=== PATIENT | male | born 1945 | race Caucasian/White ===

== ENCOUNTER 2017-12-06 19:40 | Emergency (ER) | payer OTHER ==
[2017-12-06 21:53] LABS: ADD MAN DIFF? NO
[2017-12-06 21:59] LABS: BASOPHIL # 0.1 10^3/ul (0.0-0.1); BASOPHILS % 0.8 % (0.0-2.0); EOSINOPHILS # 0.4 10^3/ul (0.0-0.5); EOSINOPHILS % 4.7 % (0.0-7.0); HEMATOCRIT 45.7 % (42.0-52.0); HEMOGLOBIN 15.4 g/dl (14.0-18.0); LYMPHOCYTES # 3.2 10^3/ul (0.8-2.9); LYMPHOCYTES % 39.1 % (15.0-51.0); MEAN CORPUSCULAR HEMOGLOBIN 30.6 pg (29.0-33.0); MEAN CORPUSCULAR HGB CONC 33.7 g/dl (32.0-37.0); MEAN CORPUSCULAR VOLUME 90.7 fl (82.0-101.0); MEAN PLATELET VOLUME 9.3 fl (7.4-10.4); MONOCYTE # 0.9 10^3/ul (0.3-0.9); MONOCYTES % 11.4 % (0.0-11.0); NEUTROPHIL # 3.6 10^3/ul (1.6-7.5); NEUTROPHILS % 43.8 % (39.0-77.0); PLATELET COUNT 422 10^3/UL (140-415); RED BLOOD COUNT 5.04 10^6/ul (4.70-6.10); RED CELL DISTRIBUTION WIDTH 12.8 % (11.5-14.5)
[2017-12-06 21:59] LABS: WHITE BLOOD COUNT 8.3 10^3/ul (4.8-10.8)
[2017-12-06] MEDS: ASPIRIN 325 MG TAB PO (22:11)
[2017-12-06 22:25] LABS: ANION GAP 12 (8-16); BLOOD UREA NITROGEN 22 mg/dl (7-20); CALCIUM 9.1 mg/dl (8.4-10.2); CARBON DIOXIDE 25 mmol/L (21-31); CHLORIDE 108 mmol/L (97-110); CREATININE 1.19 mg/dl (0.61-1.24); GLUCOSE 98 mg/dl (70-220); POTASSIUM 3.8 mmol/L (3.5-5.1); SODIUM 141 mmol/L (135-144)
[2017-12-06 22:37] LABS: B-TYPE NATRIURETIC PEPTIDE 87 PG/ML (0-125)
[2017-12-06 22:41] LABS: TROPONIN-I < 0.012 ng/ml (0.00-0.12)
[2017-12-06] MEDS: IPRATROPIUM (NEB) 0.5 MG/2.5 ML AMP HHN (22:49)
[2017-12-06] MEDS: LEVALBUTEROL (NEB) 1.25 MG/0.5 ML AMP HHN (22:49)
[2017-12-06] MEDS ORDERED: predniSONE 20 MG TAB PO (23:00)
[2017-12-06] MEDS: METHYLPREDNISOLONE 125 MG INJ IV (23:43)
[2017-12-07] MEDS: IPRATROPIUM (NEB) 0.5 MG/2.5 ML AMP HHN (00:25)
[2017-12-07] MEDS: LEVALBUTEROL (NEB) 1.25 MG/0.5 ML AMP HHN (00:25)
== END 2017-12-07 01:20 | disposition home or self-care (01) ==
LOC: E/R 12-07 01:20
DX: J20.9 Acute bronchitis, unspecified (principal); I10 Essential (primary) hypertension
CPT/HCPCS: 36415; 71045; 80048; 83880; 84484; 85025; 93005; 94640; 94664; 96374; 99285-25

== ENCOUNTER 2018-03-18 13:55 | Emergency (ER) | payer SELFPAY, OTHER | END 2018-03-18 15:10 | disposition left against medical advice (07) | LOC: FTE 13:55 | DX: Z53.21 Procedure and treatment not carried out due to patient leaving prior to being seen by health care provider (principal) ==

== ENCOUNTER 2018-03-21 23:09 | Emergency (ER) | payer OTHER ==
[2018-03-22] MEDS: SOD CHLORIDE 0.9% 1,000 ML IV (00:38)
[2018-03-22] MEDS: ACETAMINOPHEN 325 MG TAB PO (00:38)
[2018-03-22] MEDS: ONDANSETRON 4 MG INJ IV (00:38)
[2018-03-22 00:54] LABS: ADD MAN DIFF? NO
[2018-03-22 00:59] LABS: BASOPHIL # 0.1 10^3/ul (0.0-0.1); BASOPHILS % 0.8 % (0.0-2.0); EOSINOPHILS # 0.3 10^3/ul (0.0-0.5); EOSINOPHILS % 3.4 % (0.0-7.0); HEMATOCRIT 44.8 % (42.0-52.0); HEMOGLOBIN 15.2 g/dl (14.0-18.0); LYMPHOCYTES # 3.5 10^3/ul (0.8-2.9); LYMPHOCYTES % 34.7 % (15.0-51.0); MEAN CORPUSCULAR HEMOGLOBIN 31.1 pg (29.0-33.0); MEAN CORPUSCULAR HGB CONC 33.9 g/dl (32.0-37.0); MEAN CORPUSCULAR VOLUME 91.8 fl (82.0-101.0); MEAN PLATELET VOLUME 8.7 fl (7.4-10.4); MONOCYTE # 1.1 10^3/ul (0.3-0.9); MONOCYTES % 11.3 % (0.0-11.0); NEUTROPHILS % 49.5 % (39.0-77.0); PLATELET COUNT 369 10^3/UL (140-415); RED BLOOD COUNT 4.88 10^6/ul (4.70-6.10); RED CELL DISTRIBUTION WIDTH 12.6 % (11.5-14.5)
[2018-03-22 01:11] LABS: INR 0.91; PROTIME 12.3 Sec (11.9-14.9)
[2018-03-22 01:12] LABS: PARTIAL THROMBOPLASTIN TIME 28.1 Sec (25.0-35.0)
[2018-03-22 01:17] LABS: ALANINE AMINOTRANSFERASE 22 IU/L (13-69); ALBUMIN 3.9 g/dl (3.3-4.9); ALBUMIN/GLOBULIN RATIO 1.39; ALKALINE PHOSPHATASE 78 IU/L (42-121); ANION GAP 14 (8-16); ASPARTATE AMINO TRANSFERASE 22 IU/L (15-46); BILIRUBIN,INDIRECT 0.4 mg/dl (0-1.1); BILIRUBIN,TOTAL 0.4 mg/dl (0.2-1.3); BLOOD UREA NITROGEN 16 mg/dl (7-20); CALCIUM 9.7 mg/dl (8.4-10.2); CARBON DIOXIDE 23 mmol/L (21-31); CHLORIDE 106 mmol/L (97-110); GLUCOSE 96 mg/dl (70-220); LIPASE 144 U/L (23-300); POTASSIUM 4.4 mmol/L (3.5-5.1); SODIUM 139 mmol/L (135-144); TOTAL PROTEIN 6.7 g/dl (6.1-8.1)
[2018-03-22 01:32] LABS: TROPONIN-I < 0.012 ng/ml (0.000-0.120)
[2018-03-22 02:40] LABS: ADD UMIC NO; UR ASCORBIC ACID NEGATIVE (NEGATIVE); UR BILIRUBIN (Dip) NEGATIVE (NEGATIVE); UR BLOOD (Dip) NEGATIVE (NEGATIVE); UR CLARITY CLEAR (CLEAR); UR COLOR YELLOW (YELLOW); UR GLUCOSE (Dip) NEGATIVE (NEGATIVE); UR KETONES (Dip) NEGATIVE (NEGATIVE); UR LEUKOCYTE ESTERASE (Dip) NEGATIVE Leu/ul (NEGATIVE); UR NITRITE (Dip) NEGATIVE (NEGATIVE); UR SPECIFIC GRAVITY (Dip) 1.013 (1.003-1.030); UR TOTAL PROTEIN (Dip) NEGATIVE (NEGATIVE); UR UROBILINOGEN (Dip) NEGATIVE (NEGATIVE)
== END 2018-03-22 03:46 | disposition home or self-care (01) ==
LOC: FTE 03-22 03:46
DX: M79.604 Pain in right leg (principal); K40.90 Unilateral inguinal hernia, without obstruction or gangrene, not specified as recurrent; I10 Essential (primary) hypertension
CPT/HCPCS: 36415; 76870; 80053; 81003; 83690; 84484; 85025; 85610; 85730; 93005; 93971; 96374; 99285-25

== ENCOUNTER 2018-08-15 13:13 | Observation (INO) | payer OTHER ==
[2018-08-15] MEDS: ASPIRIN 81 MG TAB PO (13:33)
[2018-08-15 13:39] LABS: ADD MAN DIFF? NO
[2018-08-15 13:43] LABS: BASOPHIL # 0.1 10^3/ul (0.0-0.1); BASOPHILS % 0.8 % (0.0-2.0); EOSINOPHILS # 0.1 10^3/ul (0.0-0.5); HEMATOCRIT 41.1 % (42.0-52.0); HEMOGLOBIN 13.8 g/dl (14.0-18.0); LYMPHOCYTES # 2.1 10^3/ul (0.8-2.9); LYMPHOCYTES % 33.9 % (15.0-51.0); MEAN CORPUSCULAR HEMOGLOBIN 31.2 pg (29.0-33.0); MEAN CORPUSCULAR HGB CONC 33.6 g/dl (32.0-37.0); MEAN CORPUSCULAR VOLUME 92.8 fl (82.0-101.0); MEAN PLATELET VOLUME 8.8 fl (7.4-10.4); MONOCYTE # 0.6 10^3/ul (0.3-0.9); MONOCYTES % 9.9 % (0.0-11.0); NEUTROPHIL # 3.4 10^3/ul (1.6-7.5); NEUTROPHILS % 54.2 % (39.0-77.0); PLATELET COUNT 344 10^3/UL (140-415); RED BLOOD COUNT 4.43 10^6/ul (4.70-6.10); RED CELL DISTRIBUTION WIDTH 12.6 % (11.5-14.5)
[2018-08-15 13:43] LABS: WHITE BLOOD COUNT 6.3 10^3/ul (4.8-10.8)
[2018-08-15 14:01] LABS: ANION GAP 6 (5-13); BLOOD UREA NITROGEN 20 mg/dl (7-20); CALCIUM 8.2 mg/dl (8.4-10.2); CARBON DIOXIDE 24 mmol/L (21-31); CHLORIDE 109 mmol/L (97-110); CREATININE 0.87 mg/dl (0.61-1.24); GLUCOSE 83 mg/dl (70-220); POTASSIUM 3.7 mmol/L (3.5-5.1); SODIUM 139 mmol/L (135-144)
[2018-08-15 14:12] LABS: TROPONIN-I < 0.012 ng/ml (0.000-0.120)
[2018-08-15] MEDS ORDERED: ACETAMINOPHEN 325 MG TAB PO ×2 (16:00→16:30)
[2018-08-15] MEDS ORDERED: ONDANSETRON 4 MG INJ IV ×2 (16:00→16:30)
[2018-08-15] MEDS ORDERED: NITROGLYCERIN (SL) 0.4 MG TAB SL (16:30)
[2018-08-15] MEDS ORDERED: NACL 0.9% 3 ML SYG IV (16:30)
[2018-08-15] MEDS ORDERED: DOCUSATE SODIUM 100 MG CAP PO (16:30)
[2018-08-15] MEDS ORDERED: MAGNESIUM HYDROXIDE 30ML CUP PO (16:30)
[2018-08-15 16:34] LABS: HEMOGLOBIN A1C 4.9 % (0-5.9)
[2018-08-15 17:02] LABS: THYROID STIMULATING HORMONE 0.481 MIU/L (0.465-4.680)
[2018-08-15] MEDS: hydrALAzine 20 MG INJ IV (18:56)
[2018-08-15 20:47] LABS: CREATINE KINASE 48 IU/L (23-200)
[2018-08-15 20:47] LABS: URIC ACID 7.3 mg/dl (3.1-7.9)
[2018-08-15 20:58] LABS: CK INDEX 2.5
[2018-08-15 20:59] LABS: TROPONIN-I < 0.012 ng/ml (0.000-0.120)
[2018-08-15 21:20] LABS: CK-MB 1.21 ng/ml (0.0-2.4)
[2018-08-16] MEDS: LORAZEPAM 0.5 MG TAB PO (01:19)
[2018-08-16 01:43] LABS: CREATINE KINASE 46 IU/L (23-200)
[2018-08-16 01:54] LABS: CK INDEX 2.4; CK-MB 1.11 ng/ml (0.0-2.4); TROPONIN-I < 0.012 ng/ml (0.000-0.120)
[2018-08-16 06:13] LABS: ADD MAN DIFF? NO
[2018-08-16 06:17] LABS: BASOPHIL # 0.1 10^3/ul (0.0-0.1); BASOPHILS % 0.9 % (0.0-2.0); EOSINOPHILS # 0.2 10^3/ul (0.0-0.5); EOSINOPHILS % 2.4 % (0.0-7.0); HEMATOCRIT 39.7 % (42.0-52.0); HEMOGLOBIN 13.3 g/dl (14.0-18.0); LYMPHOCYTES # 2.4 10^3/ul (0.8-2.9); LYMPHOCYTES % 36.3 % (15.0-51.0); MEAN CORPUSCULAR HEMOGLOBIN 31.1 pg (29.0-33.0); MEAN CORPUSCULAR HGB CONC 33.5 g/dl (32.0-37.0); MEAN CORPUSCULAR VOLUME 92.8 fl (82.0-101.0); MEAN PLATELET VOLUME 9.3 fl (7.4-10.4); MONOCYTE # 0.8 10^3/ul (0.3-0.9); MONOCYTES % 12.8 % (0.0-11.0); NEUTROPHIL # 3.1 10^3/ul (1.6-7.5); NEUTROPHILS % 47.4 % (39.0-77.0); PLATELET COUNT 352 10^3/UL (140-415); RED BLOOD COUNT 4.28 10^6/ul (4.70-6.10); RED CELL DISTRIBUTION WIDTH 12.6 % (11.5-14.5)
[2018-08-16 06:17] LABS: WHITE BLOOD COUNT 6.6 10^3/ul (4.8-10.8)
[2018-08-16] MEDS: PANTOPRAZOLE (EC) 40 MG TAB PO (06:50)
[2018-08-16 06:56] LABS: ANION GAP 5 (5-13); BLOOD UREA NITROGEN 31 mg/dl (7-20); CALCIUM 8.9 mg/dl (8.4-10.2); CARBON DIOXIDE 26 mmol/L (21-31); CHLORIDE 107 mmol/L (97-110); CHOL/HDL RATIO 4.1 RATIO; CHOLESTEROL 172 mg/dl (100-200); CREATININE 1.22 mg/dl (0.61-1.24); GLUCOSE 94 mg/dl (70-220); HDL CHOLESTEROL 41 mg/dl (31-75); LDL CHOLESTEROL,CALCULATED 114 mg/dl; MAGNESIUM 2.2 mg/dl (1.7-2.5); POTASSIUM 4.4 mmol/L (3.5-5.1); SODIUM 138 mmol/L (135-144); TRIGLYCERIDES 83 mg/dl (0-149)
[2018-08-16] MEDS: ENOXAPARIN 40 MG/0.4 ML SYG SC (09:32)
[2018-08-16] MEDS: REGADENOSON 0.4 MG/5 ML SYG (11:05)
== END 2018-08-16 17:40 | disposition home or self-care (01) ==
LOC: E/R 13:13 → 6WM 16:00
DX: R07.89 Other chest pain (principal); M19.041 Primary osteoarthritis, right hand; Z79.899 Other long term (current) drug therapy
CPT/HCPCS: 36415; 71045; 73130-RT; 78452; 80048; 80061; 82550; 82553; 83036; 83735; 84443; 84484; 84560; 85025; 90686; 93005; 93017; 93306; 99285-25; G0378

== ENCOUNTER 2018-10-08 13:16 | Emergency (ER) | payer OTHER ==
[2018-10-08] MEDS: IBUPROFEN 600 MG TAB PO (15:27)
[2018-10-08] MEDS: ACETAMINOPHEN 325 MG TAB PO (15:28)
== END 2018-10-08 15:35 | disposition home or self-care (01) ==
LOC: FTE 13:16
DX: S62.616A Displaced fracture of proximal phalanx of right little finger, initial encounter for closed fracture (principal); V13.0XXA Pedal cycle driver injured in collision with car, pick-up truck or van in nontraffic accident, initial encounter
CPT/HCPCS: 29130; 73140; 99283-25

== ENCOUNTER 2018-10-13 21:31 | Emergency (ER) | payer SELFPAY, OTHER | END 2018-10-13 23:42 | disposition left against medical advice (07) | LOC: FTE 21:31 | DX: Z53.21 Procedure and treatment not carried out due to patient leaving prior to being seen by health care provider (principal) ==

== ENCOUNTER 2018-10-15 15:18 | Emergency (ER) | payer OTHER ==
[2018-10-15] MEDS: KETOROLAC 30 MG INJ IM (17:55)
== END 2018-10-15 19:29 | disposition home or self-care (01) ==
LOC: FTE 15:18
DX: K40.90 Unilateral inguinal hernia, without obstruction or gangrene, not specified as recurrent (principal); S62.608D Fracture of unspecified phalanx of other finger, subsequent encounter for fracture with routine healing; X58.XXXD Exposure to other specified factors, subsequent encounter; Y92.9 Unspecified place or not applicable
CPT/HCPCS: 29125; 76870; 96372; 99285-25

== ENCOUNTER 2018-11-28 00:09 | Emergency (ER) | payer OTHER ==
[2018-11-28] MEDS: ACETAMINOPHEN 325 MG TAB PO (03:09)
[2018-11-28] MEDS: DIPHTH/TET/ACEL PERTUSS (ADULT) 0.5 ML VIAL IM* (03:12)
== END 2018-11-28 03:37 | disposition home or self-care (01) ==
LOC: FTE 00:09
DX: S61.411A Laceration without foreign body of right hand, initial encounter (principal); K40.90 Unilateral inguinal hernia, without obstruction or gangrene, not specified as recurrent; I10 Essential (primary) hypertension; W54.8XXA Other contact with dog, initial encounter; Y92.9 Unspecified place or not applicable; Z23 Encounter for immunization
CPT/HCPCS: 90471; 90715; 99283-25

== ENCOUNTER 2018-12-29 14:44 | Emergency (ER) | payer OTHER | END 2018-12-29 18:41 | disposition home or self-care (01) | LOC: FTE 14:44 | DX: M79.644 Pain in right finger(s) (principal) | CPT/HCPCS: 29130; 73140; 99283-25 ==